=== PATIENT | male | born 1950 | race Asian ===

== ENCOUNTER 2020-05-25 15:53 | Emergency (ER) | payer OTHER ==
[~2020-05-25] VITALS: Ht 167.6 cm; Wt 83.9 kg
[2020-05-25 16:13] VITALS: TEMP 99.1
[2020-05-25 17:21] LABS: PLATELET COUNT 197 K/uL (142-355)
[2020-05-25 17:29] LABS: POTASSIUM 3.4 mmol/L (3.6-5.2); SODIUM 138 mmol/L (136-145)
[2020-05-25 17:38] LABS: PARTIAL THROMBOPLASTIN TIME 25.2 SECONDS (24.5-33.6)
[2020-05-25 20:14] VITALS: BP 144/93
== END 2020-05-25 20:15 | disposition home or self-care (01) ==
LOC: ED 15:53
PROVIDERS: Family Medicine
DX: R07.89 Other chest pain (principal); R42 Dizziness and giddiness; E87.6 Hypokalemia
CPT/HCPCS: 80053; 82550; 84484; 85027; 85610; 85730; 93005; 99283

== ENCOUNTER 2021-07-15 14:21 | Outpatient (CLI) | payer OTHER ==
[~2021-07-15] VITALS: Ht 167.6 cm; Wt 86.2 kg
== END 2021-07-15 19:27 | disposition home or self-care (01) ==
LOC: INF 14:21
PROVIDERS: ATTEND Family Medicine
DX: Z23 Encounter for immunization (principal); U07.1 COVID-19
CPT/HCPCS: 96365; M0244

== ENCOUNTER 2023-06-29 11:17 | Outpatient (CLI) | payer OTHER ==
[2023-06-29 12:19] LABS: PLATELET COUNT 233 K/uL (142-355); POTASSIUM 3.8 mmol/L (3.6-5.2)
== END 2023-06-29 19:02 | disposition home or self-care (01) ==
LOC: LABW 11:17
PROVIDERS: ATTEND Nurse Practitioner Family
DX: U09.9 Post COVID-19 condition, unspecified (principal)
CPT/HCPCS: 36415; 80053; 82550; 82553; 84484; 85027; 93005